=== PATIENT | female | born 1985 | race American Indian/Alaskan Native ===

== ENCOUNTER 2018-04-16 18:10 | Emergency (ER) | payer OTHER ==
[2018-04-16 18:47] VITALS: BP 112/64
[2018-04-16] MEDS ORDERED: XYLOCAINE 1% MPF 5 mL INFILTRATI ONE (21:47)
--- NOTE | 2018-04-16 21:48 | Emergency Department Report ---
Abscess Boil HPI - HPI Chief Complaint: Skin/Abscess/Foreign Body Stated Complaint: INGROWN HAIR Time Seen by Provider: 04/16/18 21:27 Duration: 2 Days Location: Other (pubic area) Severity: Mild History: Yes Pain, No Fever, No Purulent Drainage, No Numbness, No Foreign Body , No Previous History, No Insect Bite HPI: This is a 32-year-old [place] female who presents with an abscess to pubic area for 4 days. Patient states she shaved Saturday felt fine until a couple days later. Patient reports pain with touch and irritation from undergarments. She reports pain is 6 out of 10 on pain scale. Patient states she believed there is an ingrown hair. Patient states states Over originally she removed the scab and thats when abscess appeared. Patient states she received a tetanus vaccine 2 years ago. Patient denies fever, drainage, numbness or tingling. Home Medications: Previous Rx's Medication Instructions Recorded Last Taken Type Sulfamethoxazole/Trimethoprim 1 each PO BID #20 tablet 04/16/18 Unknown Rx [Bactrim DS TAB] Allergies/Adverse Reactions: Allergies Allergy/AdvReac Type Severity Reaction Status Date / Time No Known Allergies Allergy Verified 04/16/18 18:44 ED Review of Systems ROS: Stated complaint: INGROWN HAIR Other details as noted in HPI Constitutional: denies: chills, fever Respiratory: denies: cough, shortness of breath, wheezing Cardiovascular: denies: chest pain, palpitations Gastrointestinal: denies: abdominal pain, nausea, diarrhea Skin: lesions (abscess to pubic area). denies: rash Neurological: denies: headache, weakness, paresthesias Psychiatric: denies: anxiety, depression ED Past Medical Hx - Past Medical History Previous Medical History?: No - Surgical History Past Surgical History?: No - Social History Smoking Status: Never Smoker Substance Use Type: None - Medications Home Medications: Home Medications Medication Instructions Recorded Confirmed Last Taken Type Sulfamethoxazole/Trimethoprim 1 each PO BID #20 tablet 04/16/18 Unknown Rx [Bactrim DS TAB] ED Abscess Boil Physical Exam - Exam General: Vital signs noted. No distress. Alert and acting appropriately. Front/Back of Body, Lg (Color): 1 - 1 cm fluctuant, erythematous nodule to the mons pubis, tenderness, no surrounding cellulitis or active drainage Size: 1 cm Exam: Yes Tenderness, Yes Fluctuance, Yes Normal Neurologic Exam, Yes Normal Circulation, No Surrounding Cellulites/Erythema, No Lymphangitis, No Crepitation , No Heart Murmur I & D Note - I & D Note I & D Note: The area was prepared and draped in the usual, sterile manner. The site was anesthetized with 1% lidocaine without epinephrine. A linear incision along the local skin lines was made and the purulent material expressed. The abcess was explored thoroughly and sequestered pockets were opened. Bleeding was minimal. Packing: idodoform. Followup: The patient tolerated the procedure well without complications. Standard post-procedure care was explained and return precautions are given. ED Course Vital Signs 04/16/18 18:44 Temperature 99.3 F Pulse Rate 81 Respiratory 16 Rate Blood Pressure 112/64 O2 Sat by Pulse 100 Oximetry Critical care attestation.: If time is entered above; I have spent that time in minutes in the direct care of this critically ill patient, excluding procedure time. ED Medical Decision Making - Medical Decision Making Patient is stable and examined by me. Physical assessment of 1 cm fluctuance nodule to months pubis. No acute signs of distress noted. I&D performed refer to documentation. Patient given Bactrim DS 1 tab by mouth while in the ER. Discussed plan to start bactrim DS and take ibuprofen or naproxen over-the- counter for pain. Educated patient on follow up plan to reevaluate her wound in 2-3 days. Patient agrees to ED plan of care. Discharged home and follow up with PCP in 2-3 days. ED Disposition Clinical Impression: Abscess of pubic region Disposition: [id number] TO HOME OR SELFCARE Is pt being admited?: No Does the pt Need Aspirin: No Condition: Stable Instructions: Abscess (ED), Abscess Incision and Drainage (ED) Additional Instructions: Complete full round of bactrim DS antibiotic as prescribed. Follow up with PCP or ER in 2-3 days. Return to ER if foul smelling discharge, swelling, or severe pain to wound. Prescriptions: Sulfamethoxazole/Trimethoprim [Bactrim DS TAB] 1 each PO BID #20 tablet Referrals: [facility] [place] [Outside] - 3-5 Days [facility] [Outside] - 3-5 Days [facility] [Outside] - 3-5 Days Time of Disposition: 22:36 Print Language: THAI
[2018-04-16] MEDS ORDERED: BACTRIM DS PO ONE (22:39)
== END 2018-04-16 22:48 | disposition home or self-care (01) ==
LOC: ED 18:10
DX: N73.9 Female pelvic inflammatory disease, unspecified (principal)
CPT/HCPCS: 99282

== ENCOUNTER 2018-10-21 13:57 | Emergency (ER) | payer OTHER ==
--- NOTE | 2018-10-21 14:10 | Emergency Department Report ---
Chief Complaint: Chest Pain Stated Complaint: CHEST PAIN/BACK PAIN/BODY ACHE Time Seen by Provider: 10/21/18 14:07 - HPI History of Present Illness: CP SINCE SINCE SAT NO N/V SOB NO ABD PAIN NO DYSURIA POS ETOH SUN PSH TATOO SATURDAY PMH MIGRAINE RX NONE LMP 2 W AGO NO CIG NO DRUGS MOM AW HTN DAD AW HTN PCP NONE MSE COMPLETED MSE screening note: Focused history and physical exam performed. Due to findings the following was ordered: ED Disposition for MSE Condition: Stable
[2018-10-21 15:22] LABS: Mean Corpuscular HGB Conc 29 % (30-34); Platelet Count 456 K/mm3 (140-440); Red Blood Count 4.26 M/mm3 (3.65-5.03)
--- NOTE | 2018-10-21 15:23 | XRay Report ---
ROUTINE CHEST, TWO VIEWS: HISTORY: chest pain. The trachea, heart, mediastinal contour, lung mazariegos and bony thorax are unremarkable. IMPRESSION: Unremarkable chest x-ray.
--- NOTE | 2018-10-21 15:30 | Emergency Department Report ---
ED Chest Pain HPI - General Chief Complaint: Chest Pain Stated Complaint: CHEST PAIN/BACK PAIN/BODY ACHE Time Seen by Provider: 10/21/18 14:07 Source: patient Mode of arrival: Ambulatory Limitations: No Limitations - History of Present Illness Initial Comments: Patient is a 33-year-old female who presents to ED complaining of chest and body aches since this Saturday. Patient states that chest pain is localized to mid chest area. Patient stated the symptoms Saturday she had a fever on Saturday that resolved after that. Patient denies cough, runny nose, dizziness or headache MD Complaint: chest pain Quality: aching Consistency: intermittent - Related Data Previous Rx's Medication Instructions Recorded Last Taken Type Sulfamethoxazole/Trimethoprim 1 each PO BID #20 tablet 04/16/18 Unknown Rx [Bactrim DS TAB] Cyclobenzaprine [Flexeril] 10 mg PO QHS PRN #20 tablet 10/21/18 Unknown Rx Naproxen [Naprosyn] 500 mg PO BID #30 tablet 10/21/18 Unknown Rx Allergies Allergy/AdvReac Type Severity Reaction Status Date / Time No Known Allergies Allergy Verified 04/16/18 18:44 Heart Score - HEART Score History: Slightly suspicious EKG: Normal Age: < 45 Risk factors: No known risk factors Troponin: < normal limit HEART Score: 0 ED Review of Systems ROS: Stated complaint: CHEST PAIN/BACK PAIN/BODY ACHE Other details as noted in HPI Comment: All other systems reviewed and negative ED Past Medical Hx - Past Medical History Previous Medical History?: No - Surgical History Past Surgical History?: No - Social History Smoking Status: Never Smoker Substance Use Type: None - Medications Home Medications: Home Medications Medication Instructions Recorded Confirmed Last Taken Type Sulfamethoxazole/Trimethoprim 1 each PO BID #20 tablet 04/16/18 Unknown Rx [Bactrim DS TAB] Cyclobenzaprine [Flexeril] 10 mg PO QHS PRN #20 tablet 10/21/18 Unknown Rx Naproxen [Naprosyn] 500 mg PO BID #30 tablet 10/21/18 Unknown Rx ED Physical Exam - General Limitations: No Limitations General appearance: alert, in no apparent distress - Head Head exam: Present: atraumatic, normocephalic - Eye Eye exam: Present: normal appearance - ENT ENT exam: Present: mucous membranes moist - Neck Neck exam: Present: normal inspection - Respiratory Respiratory exam: Present: normal lung sounds bilaterally. Absent: respiratory distress - Cardiovascular Cardiovascular Exam: Present: regular rate, normal rhythm. Absent: systolic murmur, diastolic murmur, rubs, gallop - GI/Abdominal GI/Abdominal exam: Present: soft, normal bowel sounds - Extremities Exam Extremities exam: Present: normal inspection - Back Exam Back exam: Present: normal inspection - Neurological Exam Neurological exam: Present: alert, oriented X3 - Psychiatric Psychiatric exam: Present: normal affect, normal mood - Skin Skin exam: Present: warm, dry, intact, normal color. Absent: rash ED Course Vital Signs 10/21/18 14:07 Temperature 98.6 F Pulse Rate 96 H Respiratory 16 Rate Blood Pressure 110/70 O2 Sat by Pulse 98 Oximetry DANIEL score - Daniel Score Age > 65: (0) No Aspirin use within the Past 7 Days: (0) No 3 or more CAD Risk Factors: (0) No 2 or more Angina events in past 24 hrs: (0) No Known CAD with more than 50% Stenosis: (0) No Elevated Cardiac Markers: (0) No ST Deviation Greater than 0.5mm: (0) No DANIEL Score: 0 ED Medical Decision Making - Lab Data Result diagrams: 10/21/18 14:36 10/21/18 14:36 - Radiology Data Radiology results: report reviewed, image reviewed ROUTINE CHEST, TWO VIEWS: HISTORY: chest pain. The trachea, heart, mediastinal contour, lung mazariegos and bony thorax are unremarkable. IMPRESSION: Unremarkable chest x-ray. Transcribed By: TTR Dictated By: BAUDILIO VILLEGAS JR, MD Electronically Authenticated By: BAUDILIO VILLEGAS JR, MD Signed Date/Time: 10/21/18 1508 PROCEDURE: CT angiogram chest with contrast. TECHNIQUE: Computerized tomographic angiography of the chest was performed after the IV injection of iodinated nonionic contrast including image processing. The image data was postprocessed using 2-dimensional multiplanar reformatted (MPR) and 3-dimensional (MIP and/or volume rendered) techniques. Automated exposure control, adjustment of mA and/or kV according to patient size, or iterative reconstruction dose optimization techniques were utilized. CT DOSE LENGTH PRODUCT: 443.4 mGycm HISTORY: Elevated d-dimer, shortness of breath. COMPARISONS: None. FINDINGS: The trachea and central bronchi appear normal. The lungs are clear and well expanded. There are no pleural effusions. The thoracic aorta has a normal caliber without evidence of dissection. The pulmonary arteries enhance normally. There is no evidence of pulmonary embolism. There is no mediastinal adenopathy. The heart size is normal. The thoracic skeleton appears intact. IMPRESSION: Normal study. This document is electronically signed by Yrn Kee MD., October 21 2018 06:23:13 PM ET Transcribed By: MRM Dictated By: YRN KEE MD Electronically Authenticated By: YRN KEE MD Signed Date/Time: 10/21/18 4854 - Medical Decision Making . 33-year-old female presents with Costochondral chest pain Labs within normal limits., D-dimer elevated. Chest x-ray shows no acute findings. CT a of the chest was ordered based on d-dimer elevation. CT was negative. Discussed findings with the patient. Discussed the patient and mostly muscular pain. Discussed proper rest and hydration was completely days. Discussed follow-up with primary care physician in 3-5 days. Vital signs are normal patient is in no acute or respiratory distress. Critical care attestation.: If time is entered above; I have spent that time in minutes in the direct care of this critically ill patient, excluding procedure time. ED Disposition Clinical Impression: URI (upper respiratory infection), Costochondral chest pain Disposition: - TO HOME OR SELFCARE Is pt being admited?: No Does the pt Need Aspirin: No Condition: Stable Instructions: Chest Pain (ED), Costochondritis (ED), Upper Respiratory Infection (ED) Additional Instructions: Make sure to follow up with the primary care physician as discussed. Take all your medications as you've been prescribed. If you have any worsening symptoms or develop new symptoms please return to ED i mmediately. Prescriptions: Cyclobenzaprine [Flexeril] 10 mg PO QHS PRN #20 tablet PRN Reason: Muscle Spasm Naproxen [Naprosyn] 500 mg PO BID #30 tablet Referrals: HARMONY HUTCHINS MD [Primary Care Provider] - 3-[address] [facility] [Outside] - 3-5 Days [facility] [Outside] - 3-5 Days [facility] [Outside] - 3-5 Days Forms: Work/School Release Form(ED) Time of Disposition: 18:36
[2018-10-21 15:50] LABS: Alanine Aminotransferase 7 units/L (7-56); Albumin 4.4 g/dL (3.9-5); BUN/Creatinine Ratio 14; Blood Urea Nitrogen 10 mg/dL (7-17); Calcium 9.6 mg/dL (8.4-10.2); Hemolysis Index 0
[2018-10-21 15:52] LABS: Hematocrit 25.1 % (30.3-42.9); Hemoglobin 7.2 gm/dl (10.1-14.3)
[2018-10-21 15:53] LABS: Mean Corpuscular Volume 59 fl (79-97)
[2018-10-21 16:33] LABS: HCG Qualitative,Urine Negative (Negative)
[2018-10-21 16:37] LABS: Bilirubin,Urine NEG (Negative); Blood,Urine NEG (Negative); Color,Urine Yellow (Yellow); Mucus,Urine 3+ /HPF
[2018-10-21 16:50] LABS: Basophils % (Manual) 0 % (0.0-1.8); Total Cells Counted 100
[2018-10-21 16:52] LABS: Anisocytosis 1+; Hypochromasia 3+; Large Platelets Few; Platelet Estimate Consistent w Auto; Target Cells 1+
--- NOTE | 2018-10-21 18:24 | Cat Scan Report ---
PROCEDURE: CT angiogram chest with contrast. TECHNIQUE: Computerized tomographic angiography of the chest was performed after the IV injection of iodinated nonionic contrast including image processing. The image data was postprocessed using 2-di mensional multiplanar reformatted (MPR) and 3-dimensional (MIP and/or volume rendered) techniques. Au tomated exposure control, adjustment of mA and/or kV according to patient size, or iterative reconstr uction dose optimization techniques were utilized. CT DOSE LENGTH PRODUCT: 443.4 mGycm HISTORY: Elevated d-dimer, shortness of breath. COMPARISONS: None. FINDINGS: The trachea and central bronchi appear normal. The lungs are clear and well expanded. There are no pl eural effusions. The thoracic aorta has a normal caliber without evidence of dissection. The pulmonar y arteries enhance normally. There is no evidence of pulmonary embolism. There is no mediastinal fallon opathy. The heart size is normal. The thoracic skeleton appears intact. IMPRESSION: Normal study. This document is electronically signed by Yrn Armstrong MD., October 21 2018 06:23:13 PM ET
[2018-10-21 21:08] VITALS: BP 110/70
== END 2018-10-21 18:48 | disposition home or self-care (01) ==
LOC: ED 13:57
DX: M94.0 Chondrocostal junction syndrome [Tietze] (principal); J06.9 Acute upper respiratory infection, unspecified
CPT/HCPCS: 36415; 71046; 71275; 80053; 81001; 81025; 84484; 84703; 85007; 85025; 85379; 93005; 93010; 99284; Q9967